=== PATIENT | female | born 1970 | race Caucasian/White ===

== ENCOUNTER 2018-07-06 09:56 | Emergency (ER) | payer BC, OTHER ==
[2018-07-06 10:47] LABS: ADD UMIC YES; UR ASCORBIC ACID NEGATIVE (NEGATIVE); UR BACTERIA FEW /HPF (NONE SEEN); UR BILIRUBIN (Dip) NEGATIVE (NEGATIVE); UR BLOOD (Dip) 2+ mg/dL (NEGATIVE); UR CLARITY CLEAR (CLEAR); UR COLOR AMBER (YELLOW); UR GLUCOSE (Dip) NEGATIVE (NEGATIVE); UR KETONES (Dip) NEGATIVE (NEGATIVE); UR LEUKOCYTE ESTERASE (Dip) NEGATIVE Leu/ul (NEGATIVE); UR MUCUS FEW /HPF (NONE SEEN); UR NITRITE (Dip) POSITIVE (NEGATIVE); UR RBC 7 /HPF (0-5); UR SPECIFIC GRAVITY (Dip) 1.012 (1.003-1.030); UR TOTAL PROTEIN (Dip) NEGATIVE (NEGATIVE); UR UROBILINOGEN (Dip) 2+ mg/dL (NEGATIVE); UR WBC 10 /HPF (0-5)
== END 2018-07-06 11:36 | disposition home or self-care (01) ==
LOC: FTE 09:56
DX: N39.0 Urinary tract infection, site not specified (principal)
CPT/HCPCS: 74176; 81001; 81025; 99284-25

== ENCOUNTER 2018-07-07 19:14 | Emergency (ER) | payer SELFPAY, BC | END 2018-07-07 20:37 | disposition left against medical advice (07) | LOC: FTE 19:14 | DX: Z53.21 Procedure and treatment not carried out due to patient leaving prior to being seen by health care provider (principal) ==

== ENCOUNTER 2018-07-09 18:41 | Emergency (ER) | payer BC ==
[2018-07-09 19:47] LABS: URINE BLOOD (Dip) POC 1+ (NEGATIVE); URINE KETONES (Dip) POC 1+ (NEGATIVE); URINE LEUKOCYTE EST (Dip) POC 3+ (NEGATIVE); URINE NITRITE (Dip) POC Positive (NEGATIVE); URINE TOTAL PROTEIN POC 3+ (NEGATIVE)
[2018-07-09] MEDS: KETOROLAC 60 MG INJ IM (20:28)
[2018-07-09] MEDS: CEFTRIAXONE 1 GM INJ IM (20:28)
[2018-07-09] MEDS: LIDOCAINE 1% (MDV) 20 ML INJ INJ (20:28)
[2018-07-09] MEDS: LIDOCAINE 1% (MDV) 10 ML INJ INJ (20:33)
== END 2018-07-09 21:14 | disposition home or self-care (01) ==
LOC: FTE 18:41
DX: N39.0 Urinary tract infection, site not specified (principal)
CPT/HCPCS: 81003; 87086; 96372; 99284-25